=== PATIENT | male | born 1955 | race Caucasian/White ===

== ENCOUNTER → 2018-08-01 | Outpatient (CLI) | payer OTHER ==
--- NOTE | 2018-08-01 12:13 | KCIC ---
EXAM: MRI LEFT WRIST DATE: 08/01/2018 9:30 AM CLINICAL HISTORY: Ulnar-sided left wrist pain. History of injury in May. COMPARISON: 06/10/2018 TECHNIQUE: Multiplanar multisequence MR imaging of the left wrist was performed without IV contrast. FINDINGS: The scapholunate and lunotriquetral ligaments are intact. The extrinsic ligaments of the wrist are also grossly intact. TFCC: There is diffuse thickening of the TFC disc centrally suggesting chronic degeneration with undersurface fraying. The radial, foveal and styloid attachments are grossly intact. The dorsal and volar radioulnar ligaments are intact. There is focal thickening and increased signal within the extensor carpi ulnaris at the level of the ulnar styloid consistent with moderate tendinosis. Otherwise the visualized flexor and extensor tendons are normal in signal and morphology. No tenosynovitis. A small ganglion is seen at the tip of the ulnar styloid. Additional scattered small ganglia are seen about the wrist. There is no abnormal bowing of the flexor retinaculum. The median nerve is normal in signal and morphology. The visualized portions of the ulnar nerve are also normal in signal and morphology. 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 There is also associated bony remodeling with proliferative change of the trapezium. Scaphoid degenerative change is also noted with regions of chondromalacia and subchondral cystic change. Neutral ulnar variance. There is no significant distal radial ulnar joint, radiocarpal, or midcarpal joint effusion. IMPRESSION: 1. 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 The radial, foveal and lunate attachments the TFCC are intact. 2. 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 3. Scattered soft tissue ganglion are seen including a 5 mm ganglion at the volar aspect of the ulnar styloid. 4. 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 Electronically signed by: David Alexandre MD (08/01/2018 12:09 PM) [facility]
== END | disposition home or self-care (01) ==
LOC: KCIC MRI 08:57
DX: M19.032 Primary osteoarthritis, left wrist (principal); M77.8 Other enthesopathies, not elsewhere classified; M67.432 Ganglion, left wrist; M94.232 Chondromalacia, left wrist
CPT/HCPCS: 73221